=== PATIENT | female | born 1980 | race Caucasian/White ===

== ENCOUNTER 2016-05-22 00:44 | Emergency (ER) | payer MEDICAID ==
[2016-05-22 01:01] VITALS: BP 183/113
[2016-05-22] MEDS ORDERED: Metoclopramide 10 MG/2 ML SDV IVPUSH ONE (01:46)
[2016-05-22] MEDS ORDERED: Ketorolac 30 MG/ML SDV IVPUSH ONE (01:46)
[2016-05-22] MEDS ORDERED: diphenhydrAMINE 50 MG/ML SDV IVPUSH ONE (01:46)
[2016-05-22] MEDS ORDERED: Sodium Chloride 0.9% 1,000 ML IV ONE (01:46)
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
== END 2016-05-22 03:00 | disposition home or self-care (01) ==
LOC: KA.ED 00:44
DX: G43.019 Migraine without aura, intractable, without status migrainosus (principal); Z88.7 Allergy status to serum and vaccine
CPT/HCPCS: 96361; 96374; 96375; 99283; J1200; J1885; J2765; J7030

== ENCOUNTER 2016-06-23 20:03 | Emergency (ER) | payer MEDICAID ==
[2016-06-23 20:19] VITALS: BP 135/75
[2016-06-23] MEDS ORDERED: Sodium Chloride 0.9% 1,000 ML IV ONE (20:38)
[2016-06-23] MEDS ORDERED: Ketorolac 30 MG/ML SDV IVPUSH ONE (20:38)
[2016-06-23] MEDS ORDERED: diphenhydrAMINE 50 MG/ML SDV IVPUSH ONE (20:38)
[2016-06-23] MEDS ORDERED: Ondansetron 4 MG/2 ML SDV IVPUSH ONE (20:38)
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
[2016-06-23] MEDS ORDERED: Metoclopramide 10 MG/2 ML SDV IVPUSH ONE (21:55)
[2016-06-23] MEDS ORDERED: Metoclopramide 10 MG/2 ML SDV ONE (21:56)
== END 2016-06-23 22:50 | disposition home or self-care (01) ==
LOC: KA.ED 20:03
DX: G43.919 Migraine, unspecified, intractable, without status migrainosus (principal); J45.909 Unspecified asthma, uncomplicated; K21.9 Gastro-esophageal reflux disease without esophagitis; F41.9 Anxiety disorder, unspecified; F32.9 Major depressive disorder, single episode, unspecified; F17.210 Nicotine dependence, cigarettes, uncomplicated; E66.9 Obesity, unspecified; Z98.890 Other specified postprocedural states; Z88.7 Allergy status to serum and vaccine; Z79.899 Other long term (current) drug therapy
CPT/HCPCS: 96361; 96374; 96375; 99283; J1200; J1885; J2405; J2765; J7030

== ENCOUNTER 2016-07-15 17:03 | Emergency (ER) | payer MEDICAID ==
[2016-07-15] MEDS ORDERED: Ketorolac 30 MG/ML SDV IVPUSH ONE (17:10)
[2016-07-15] MEDS ORDERED: Metoclopramide 10 MG/2 ML SDV IVPUSH ONE (17:10)
[2016-07-15] MEDS ORDERED: diphenhydrAMINE 50 MG/ML SDV IVPUSH ONE (17:10)
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
[2016-07-15 17:24] VITALS: BP 160/86
== END 2016-07-15 18:25 | disposition home or self-care (01) ==
LOC: KA.ED 17:03
DX: G43.719 Chronic migraine without aura, intractable, without status migrainosus (principal); I10 Essential (primary) hypertension; J45.909 Unspecified asthma, uncomplicated; K21.9 Gastro-esophageal reflux disease without esophagitis; F41.0 Panic disorder [episodic paroxysmal anxiety]; F32.9 Major depressive disorder, single episode, unspecified; F17.210 Nicotine dependence, cigarettes, uncomplicated; E66.9 Obesity, unspecified; L40.9 Psoriasis, unspecified; Z98.890 Other specified postprocedural states; Z79.899 Other long term (current) drug therapy; Z88.7 Allergy status to serum and vaccine
CPT/HCPCS: 96374; 96375; 99283; J1200; J1885; J2765

== ENCOUNTER 2016-07-17 17:12 | Emergency (ER) | payer MEDICAID ==
[2016-07-17 17:28] VITALS: BP 140/81
[2016-07-17] MEDS ORDERED: Ketorolac 30 MG/ML SDV IVPUSH ONE (18:02)
[2016-07-17] MEDS ORDERED: Ondansetron 4 MG/2 ML SDV IVPUSH ONE (18:02)
[2016-07-17] MEDS ORDERED: diphenhydrAMINE 50 MG/ML SDV IVPUSH ONE (18:03)
[2016-07-17] MEDS ORDERED: Ondansetron 4 MG/2 ML SDV ONE (18:17)
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
[2016-07-17] MEDS ORDERED: Acetaminophen 325 MG Tab PO ONE (19:03)
[2016-07-17] MEDS ORDERED: HYDROmorphone 1 MG/ML Syringe IVPUSH ONE (19:04)
[2016-07-17] MEDS ORDERED: Acetaminophen 500 MG Tab PO ONE (19:08)
[2016-07-17] MEDS ORDERED: Ondansetron 4 MG Tab.DIS PO PRN (19:49)
== END 2016-07-17 20:10 | disposition home or self-care (01) ==
LOC: KA.ED 17:12
DX: G43.909 Migraine, unspecified, not intractable, without status migrainosus (principal); H54.7 Unspecified visual loss; I10 Essential (primary) hypertension; J45.909 Unspecified asthma, uncomplicated; K21.9 Gastro-esophageal reflux disease without esophagitis; E66.9 Obesity, unspecified; L40.9 Psoriasis, unspecified; F17.210 Nicotine dependence, cigarettes, uncomplicated; Z90.49 Acquired absence of other specified parts of digestive tract; Z88.7 Allergy status to serum and vaccine; Z79.899 Other long term (current) drug therapy
CPT/HCPCS: 96374; 96375; 99283; A9270; J1170; J1200; J1885; J2360; J2405

== ENCOUNTER 2016-08-01 19:14 | Emergency (ER) | payer MEDICAID ==
[2016-08-01] MEDS ORDERED: Sodium Chloride 0.9% 1,000 ML IV ONE (19:17)
[2016-08-01] MEDS ORDERED: Sodium Chloride 0.9% 1,000 ML ONE (19:17)
[2016-08-01 19:38] VITALS: BP 160/79
[2016-08-01] MEDS ORDERED: Ketorolac 30 MG/ML SDV IVPUSH ONE (19:38)
[2016-08-01] MEDS ORDERED: Metoclopramide 10 MG/2 ML SDV IVPUSH ONE (19:38)
[2016-08-01] MEDS ORDERED: Dexamethasone 4 MG/ML SDV IVPUSH ONE (19:38)
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
== END 2016-08-01 20:30 | disposition home or self-care (01) ==
LOC: KA.ED 19:14
DX: G43.719 Chronic migraine without aura, intractable, without status migrainosus (principal); H54.7 Unspecified visual loss; I10 Essential (primary) hypertension; J45.909 Unspecified asthma, uncomplicated; E66.9 Obesity, unspecified; F17.210 Nicotine dependence, cigarettes, uncomplicated; Z98.890 Other specified postprocedural states; Z98.51 Tubal ligation status; Z88.7 Allergy status to serum and vaccine; Z79.899 Other long term (current) drug therapy
CPT/HCPCS: 96361; 96374; 96375; 99283; J1100; J1885; J2765; J7030

== ENCOUNTER 2017-04-11 19:15 | Emergency (ER) | payer MEDICAID ==
[2017-04-11 19:51] VITALS: BP 165/90
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
== END 2017-04-11 20:10 | disposition home or self-care (01) ==
LOC: KA.ED 19:15
DX: S80.01XA Contusion of right knee, initial encounter (principal); I10 Essential (primary) hypertension; F17.210 Nicotine dependence, cigarettes, uncomplicated; J45.909 Unspecified asthma, uncomplicated; Z88.7 Allergy status to serum and vaccine; Z79.899 Other long term (current) drug therapy; W00.9XXA Unspecified fall due to ice and snow, initial encounter
CPT/HCPCS: 73562-RT; 99283

== ENCOUNTER 2017-05-28 20:58 | Emergency (ER) | payer MEDICAID ==
[2017-05-28 21:08] VITALS: BP 152/91
[2017-05-28] MEDS ORDERED: Bacitracin/Neomycin/Polymyxin B Oint 0.9 GM U/D Packet ONE (21:14)
[2017-05-28] MEDS ORDERED: Bacitracin/Neomycin/Polymyxin B Oint 0.9 GM U/D Packet TOP ONE (21:15)
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
== END 2017-05-28 21:30 | disposition home or self-care (01) ==
LOC: KA.ED 20:58
DX: S61.411A Laceration without foreign body of right hand, initial encounter (principal); S90.811A Abrasion, right foot, initial encounter; I10 Essential (primary) hypertension; J45.909 Unspecified asthma, uncomplicated; K21.9 Gastro-esophageal reflux disease without esophagitis; F17.210 Nicotine dependence, cigarettes, uncomplicated; Z88.7 Allergy status to serum and vaccine; Z79.899 Other long term (current) drug therapy; W19.XXXA Unspecified fall, initial encounter
CPT/HCPCS: 99283

== ENCOUNTER 2017-09-25 10:53 | Emergency (ER) | payer MEDICAID ==
[2017-09-25 11:08] VITALS: BP 116/77
[2017-09-25] MEDS: Sodium Chloride 0.9% 1,000 ML IV ONE (11:26)
[2017-09-25] MEDS: Ondansetron 4 MG/2 ML SDV IVPUSH SCH (11:27)
[2017-09-25] MEDS: Ketorolac 30 MG/ML SDV IVPUSH SCH (11:30)
[2017-09-25] MEDS: diphenhydrAMINE 50 MG/ML SDV IVPUSH SCH (11:35)
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
[2017-09-25] MEDS: Metoclopramide 10 MG/2 ML SDV IVPUSH ONE (12:36)
== END 2017-09-25 13:15 | disposition home or self-care (01) ==
LOC: KA.ED 10:53
DX: G43.719 Chronic migraine without aura, intractable, without status migrainosus (principal); I10 Essential (primary) hypertension; F17.210 Nicotine dependence, cigarettes, uncomplicated; Z88.7 Allergy status to serum and vaccine; Z79.899 Other long term (current) drug therapy
CPT/HCPCS: 96361; 96374; 96375; 99283; J1200; J1885; J2405; J2765; J7030

== ENCOUNTER 2018-02-15 20:02 | Emergency (ER) | payer MEDICAID ==
[2018-02-15] MEDS ORDERED: Sodium Chloride 0.9% 1,000 ML IV ONE (20:17)
[2018-02-15] MEDS ORDERED: Ketorolac 30 MG/ML SDV IVPUSH ONE (20:18)
[2018-02-15] MEDS ORDERED: diphenhydrAMINE 50 MG/ML SDV IVPUSH ONE (20:18)
[2018-02-15] MEDS ORDERED: Amoxicillin/Clavulanate K 875-125 MG Tab PO ONE (20:36)
[2018-02-15] MEDS ORDERED: Metoclopramide 10 MG/2 ML SDV IVPUSH ONE (20:36)
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
[2018-02-15 21:02] VITALS: BP 142/81
== END 2018-02-15 21:30 | disposition home or self-care (01) ==
LOC: KA.ED 20:02
DX: G43.719 Chronic migraine without aura, intractable, without status migrainosus (principal); H66.91 Otitis media, unspecified, right ear; I10 Essential (primary) hypertension; E66.9 Obesity, unspecified; Z88.7 Allergy status to serum and vaccine; Z79.899 Other long term (current) drug therapy
CPT/HCPCS: 96361; 96374; 96375; 99283; A9270-GY; J1200; J1885; J2765; J7030

== ENCOUNTER 2018-04-22 19:46 | Emergency (ER) | payer MEDICAID ==
[2018-04-22 19:54] VITALS: BP 134/72
[2018-04-22] MEDS ORDERED: Ketorolac 60 MG/2 ML SDV IM ONE (20:30)
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
--- NOTE | 2018-04-23 09:06 | CR ---
[id number] RAD/RAD Knee Left 3V Exam: RAD Knee Left 3V Indication:FALL WITH INJURY TO LEFT KNEE. Comparison: No prior imaging for comparison. Discussion: No significant osseous or soft tissue abnormality. Impression: Negative examination of the knee. Maurisio Sanchez MD 04/23/18 0904 Thank you for allowing us to participate in the care of your patient.
--- NOTE | 2018-04-23 09:06 | CR ---
[id number] RAD/RAD Ankle Left 3V Min Exam: RAD Ankle Left 3V Min Indication:INJURY/FALL TO LEFT ANKLE/FOOT. Comparison: No prior imaging for comparison. Discussion: Soft tissue swelling along lateral aspect of the ankle. No fracture or dislocation. Impression: No acute osseous abnormality. Maurisio Sanchez MD 04/23/18 0904 Thank you for allowing us to participate in the care of your patient.
== END 2018-04-22 21:20 | disposition home or self-care (01) ==
LOC: KA.ED 19:46
DX: S93.402A Sprain of unspecified ligament of left ankle, initial encounter (principal); S80.02XA Contusion of left knee, initial encounter; I10 Essential (primary) hypertension; J45.909 Unspecified asthma, uncomplicated; Z88.7 Allergy status to serum and vaccine; W00.0XXA Fall on same level due to ice and snow, initial encounter; Z79.899 Other long term (current) drug therapy
CPT/HCPCS: 73562; 73610; 96372; 99283; J1885

== ENCOUNTER 2019-05-18 20:34 | Emergency (ER) | payer MEDICAID ==
[2019-05-18 20:50] VITALS: BP 157/90; PULSE 100
[2019-05-18] MEDS ORDERED: Ibuprofen 600 MG Tab PO ONE (21:03)
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
--- NOTE | 2019-05-19 09:40 | CR ---
[id number] RAD/RAD Foot Left 2V EXAM: RAD Foot Left 2V CLINICAL DATA: TRAUMA COMPARISON: NO PREVIOUS SIMILAR EXAM IS AVAILABLE. FINDINGS: No fracture or dislocation is seen. There is no radiopaque foreign body in the soft tissues. There is no air in the soft tissues. There is no cortical thickening or periosteal reaction either. IMPRESSION: NEGATIVE PLAIN FILM EXAM. Walker Perez MD 05/19/19 0939 Thank you for allowing us to participate in the care of your patient.
== END 2019-05-18 21:50 | disposition home or self-care (01) ==
LOC: KA.ED 20:34
DX: S90.32XA Contusion of left foot, initial encounter (principal); F17.210 Nicotine dependence, cigarettes, uncomplicated; J45.909 Unspecified asthma, uncomplicated; I10 Essential (primary) hypertension; G43.909 Migraine, unspecified, not intractable, without status migrainosus; F41.9 Anxiety disorder, unspecified; F32.9 Major depressive disorder, single episode, unspecified; E66.9 Obesity, unspecified; Z68.41 Body mass index [BMI] 40.0-44.9, adult; W55.19XA Other contact with horse, initial encounter
CPT/HCPCS: 73620; 99283; A9270

== ENCOUNTER 2020-12-12 18:43 | Emergency (ER) | payer MEDICAID ==
[2020-12-12] MEDS ORDERED: Aspirin 81 MG Tab.Chew PO ONE (19:01)
[2020-12-12] MEDS ORDERED: Nitroglycerin 0.4 MG Tab.SL SL ONE (19:07)
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
[2020-12-12 19:25] LABS: ANION GAP 14.3 mmol/L (5-15); CHLORIDE,CL 104 mmol/L (98-107); SODIUM,NA 142 mmol/L (136-145)
[2020-12-12] MEDS ORDERED: Morphine 2 MG/ML SYRINGE IVPUSH ONE (19:26)
[2020-12-12] MEDS ORDERED: Metoprolol Tartrate 5 MG/5 ML SDV IVPUSH ONE ×2 (20:29→20:54)
[2020-12-12] MEDS ORDERED: Ketorolac 30 MG/ML SDV IM ONE (20:56)
[2020-12-12] MEDS ORDERED: Ketorolac 30 MG/ML SDV ONE (20:57)
[2020-12-13 01:09] VITALS: BP 160/101; PULSE 88
== END 2020-12-12 22:00 | disposition home or self-care (01) ==
LOC: KA.ED 18:43
DX: I20.9 Angina pectoris, unspecified (principal); G43.719 Chronic migraine without aura, intractable, without status migrainosus; I10 Essential (primary) hypertension; J45.909 Unspecified asthma, uncomplicated; E66.9 Obesity, unspecified; Z68.41 Body mass index [BMI] 40.0-44.9, adult; Z88.7 Allergy status to serum and vaccine; Z79.899 Other long term (current) drug therapy
CPT/HCPCS: 36415; 80048; 84484; 85025; 93005; 93010; 96372; 96374; 96375; 99284; 99285-25; A9270-GY; J1885; J2270; J3490

== ENCOUNTER 2020-12-16 16:16 | Emergency (ER) | payer MEDICAID ==
[2020-12-16] MEDS ORDERED: Sodium Chloride 0.9% 10 ML Syringe FLUSH PRN (16:45)
--- NOTE | 2020-12-16 17:00 | CR ---
[id number] RAD/RAD Chest PA or AP 1V EXAM: SINGLE VIEW CHEST. INDICATION: CHEST PAIN COMPARISON: NO PREVIOUS SIMILAR EXAM IS AVAILABLE FINDINGS: The lungs are clear The cardiomediastinal contour is normal IMPRESSION: NO ACUTE PROCESS Walker Perez MD 12/16/20 [id number] Thank you for allowing us to participate in the care of your patient.
[2020-12-16 17:02] LABS: ANION GAP 15.3 mmol/L (5-15); CHLORIDE,CL 104 mmol/L (98-107); SODIUM,NA 142 mmol/L (136-145)
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
[2020-12-16] MEDS: LORazepam 0.5 MG Tab PO ONE (17:26)
[2020-12-16] MEDS: Labetalol 100 MG/20 ML MDV IVPUSH ONE (17:28)
[2020-12-16 17:39] VITALS: BP 175/107; PULSE 98
--- NOTE | 2020-12-16 18:10 | CT ---
[id number] CT/CT Chest WO IV Exam: CT Chest WO IV Clinical Data: CHEST PAIN COMPARISON: NO PREVIOUS SIMILAR EXAM IS AVAILABLE FINDINGS: There is no infiltrate There is no lung mass identified There is no mediastinal mass or adenopathy There are some limitations of the exam without IV contrast. No lytic or blastic changes are seen Attention is directed to the sternum and the sternoclavicular joints. There are mild degenerative changes at this level. IMPRESSION: NO ACUTE PLAIN CT ABNORMALITY Walker Perez MD 12/16/20 [id number] Thank you for allowing us to participate in the care of your patient.
[2020-12-16] MEDS ORDERED: Metoprolol Tartrate 50 MG Tab PO ONE (18:23)
[2020-12-16] MEDS ORDERED: Labetalol 100 MG/20 ML MDV IVPUSH ONE (18:23)
== END 2020-12-16 19:45 | disposition home or self-care (01) ==
LOC: KA.ED 16:16
DX: I10 Essential (primary) hypertension (principal); J45.909 Unspecified asthma, uncomplicated; E66.9 Obesity, unspecified; Z68.42 Body mass index [BMI] 45.0-49.9, adult; Z88.7 Allergy status to serum and vaccine; Z72.0 Tobacco use
CPT/HCPCS: 36415; 71045; 71250; 80053; 84484; 85025; 93005; 96374; 99284; 99285-25; A9270-GY; J3490

== ENCOUNTER 2020-12-31 14:30 | Emergency (ER) | payer MEDICAID ==
[2020-12-31] MEDS ORDERED: Sodium Chloride 0.9% 10 ML Syringe FLUSH PRN (14:52)
[2020-12-31 14:56] VITALS: BP 158/96; PULSE 93
[2020-12-31] MEDS ORDERED: LORazepam 2 MG/ML SDV IVPUSH ONE (15:32)
[2020-12-31] MEDS ORDERED: Metoclopramide 10 MG/2 ML SDV IVPUSH ONE (15:33)
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
--- NOTE | 2020-12-31 15:44 | CT ---
[id number] CT/CT Head WO IV EXAM: NONCONTRAST HEAD CT INDICATION: CHEST PAIN,HEADACHE. COMPARISON: None. DISCUSSION: The ventricles and sulci are normal in size and configuration. The holt and white matter are normal in attenuation. No mass effect or midline shift. No acute hemorrhage or extra-axial fluid collection. No acute territorial infarct is identified. A limited look at the orbits and paranasal sinuses is unremarkable. IMPRESSION: 1. Negative exam. Parrish Abad MD 12/31/20 0044 Thank you for allowing us to participate in the care of your patient.
--- NOTE | 2020-12-31 15:46 | CR ---
[id number] RAD/RAD Chest PA or AP 1V EXAM: FRONTAL CHEST INDICATION: CHEST PAIN. COMPARISON: December 16, 2020. DISCUSSION: Evaluation somewhat limited by portable technique. Mild linear atelectasis or scarring is suggested in the right lung base. No acute infiltrates. Normal heart size. No appreciable effusions. IMPRESSION: 1. Negative limited exam. Parrish Abad MD 12/31/20 0271 Thank you for allowing us to participate in the care of your patient.
[2020-12-31 15:47] LABS: ANION GAP 16.5 mmol/L (5-15); CHLORIDE,CL 102 mmol/L (98-107); SODIUM,NA 141 mmol/L (136-145)
[2020-12-31 16:37] LABS: BARBITURATE SCREEN,URINE NEGATIVE (NEGATIVE); BENZODIAZEPINES SCREEN,URINE NEGATIVE (NEGATIVE); TCA SCREEN,URINE NEGATIVE (NEGATIVE); THC SCREEN,URINE 50 NG/ML NEGATIVE (NEGATIVE)
== END 2020-12-31 17:08 | disposition home or self-care (01) ==
LOC: KA.ED 14:35
DX: F41.9 Anxiety disorder, unspecified (principal); I10 Essential (primary) hypertension; E66.9 Obesity, unspecified; K21.9 Gastro-esophageal reflux disease without esophagitis; Z68.42 Body mass index [BMI] 45.0-49.9, adult; Z88.7 Allergy status to serum and vaccine; Z79.899 Other long term (current) drug therapy
CPT/HCPCS: 36415; 70450; 71045; 80053; 80305; 84484; 85025; 96374; 96375; 99285; J2060; J2765; 93010; 99284